=== PATIENT | female | born 1995 | race Caucasian/White ===

== ENCOUNTER 2023-05-17 08:30 | Day surgery (SDC) | payer BC ==
[~2023-05-17] VITALS: Ht 175.3 cm; Wt 113.4 kg
[2023-05-17] MEDS ORDERED: LIDOCAINE 2%, 20 ML MDV ONE (09:00)
[2023-05-17] MEDS ORDERED: NORMAL SALINE 10 ML VIAL ONE (09:00)
[2023-05-17] MEDS ORDERED: methylPREDNISolone ACETATE 40 MG/ML ONE (09:00)
[2023-05-17] MEDS ORDERED: IOPAMIDOL 50 ML VIAL IV ONE (09:00)
[2023-05-17 09:53] LABS: HCG,QUAL RESULT NEGATIVE (NEGATIVE)
[2023-05-17 11:01] VITALS: O2SAT 97
[2023-05-17] MEDS ORDERED: fentaNYL CITRATE/PF 100 MCG/2 ML AMP ONE (11:49)
[2023-05-17] MEDS ORDERED: MIDAZOLAM HCL 5 MG/5 ML VIAL ONE (11:49)
[2023-05-17] MEDS ORDERED: DIPHENHYDRAMINE INJ 50 MG/ML VIAL ONE (11:50)
[2023-05-17 12:45] VITALS: BP_SYST 118; PULSE 66; RESP 18
== END 2023-05-17 12:42 | disposition home or self-care (01) ==
LOC: SDS 08:30 → SMU 09:13 → SDS 12:42
PROVIDERS: ATTEND Internal Medicine
DX: M51.16 Intervertebral disc disorders with radiculopathy, lumbar region (principal); M50.90 Cervical disc disorder, unspecified, unspecified cervical region; M79.10 Myalgia, unspecified site; I10 Essential (primary) hypertension; E11.9 Type 2 diabetes mellitus without complications; Z98.890 Other specified postprocedural states; Z79.899 Other long term (current) drug therapy
CPT/HCPCS: 62323; 84703; J1200; J2001; J1030; J2250; J3010; Q9967; 76000